=== PATIENT | female | born 1970 | race Caucasian/White ===

== ENCOUNTER → 2016-08-20 | Outpatient (CLI) | payer BC | LOC: FIMAGING 09:32 | PROVIDERS: ATTEND Allergy & Immunology Allergy | DX: D18.09 Hemangioma of other sites (principal) ==

== ENCOUNTER → 2017-02-02 | Outpatient (CLI) | payer BC | LOC: BMCIMAGING 07:27 | PROVIDERS: ATTEND Allergy & Immunology Allergy | DX: K42.9 Umbilical hernia without obstruction or gangrene (principal) ==

== ENCOUNTER → 2017-03-09 | Outpatient (CLI) | payer BC | LOC: FIMAGING 08:02 | PROVIDERS: ATTEND Allergy & Immunology Allergy | DX: R93.2 Abnormal findings on diagnostic imaging of liver and biliary tract (principal) ==

== ENCOUNTER → 2017-03-31 | Outpatient (CLI) | payer BC | LOC: BMCIMAGING 15:20 | PROVIDERS: ATTEND Allergy & Immunology Allergy | DX: R07.9 Chest pain, unspecified (principal); R60.0 Localized edema; M79.661 Pain in right lower leg ==